=== PATIENT | male | born 1985 | race Caucasian/White ===

== ENCOUNTER 2021-09-22 14:31 | Emergency (ER) | payer OTHER, SELFPAY ==
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
[2021-09-22 14:49] VITALS: BP 114/74; PULSE 81; RESP 18; TEMP 36.3; O2SAT 97; BMI 27.4
== END 2021-09-22 21:57 | disposition left against medical advice (07) ==
PROVIDERS: Emergency Provider Emergency Medicine; PCP Internal Medicine
DX: S29.9XXA Unspecified injury of thorax, initial encounter (principal); S99.921A Unspecified injury of right foot, initial encounter; M25.511 Pain in right shoulder; M79.671 Pain in right foot; V43.52XA Car driver injured in collision with other type car in traffic accident, initial encounter; Y93.9 Activity, unspecified; Y92.410 Unspecified street and highway as the place of occurrence of the external cause; Y99.9 Unspecified external cause status; Z79.899 Other long term (current) drug therapy
CPT/HCPCS: 71045; 73030; 73630; 99283

== ENCOUNTER → 2022-06-25 12:00 | Outpatient (BNVA) | payer OTHER, SELFPAY | PROVIDERS: PCP Internal Medicine; Visit Provider Internal Medicine | DX: S01.01XA Laceration without foreign body of scalp, initial encounter (principal); W22.09XA Striking against other stationary object, initial encounter | CPT/HCPCS: 12002; 70450; 90715; 99203 ==

== ENCOUNTER → 2022-06-26 09:58 | Outpatient (BNVA) | payer OTHER, SELFPAY | PROVIDERS: PCP Internal Medicine; Visit Provider Internal Medicine | DX: S01.01XA Laceration without foreign body of scalp, initial encounter (principal); S06.9X0A Unspecified intracranial injury without loss of consciousness, initial encounter; W22.09XA Striking against other stationary object, initial encounter | CPT/HCPCS: 99213 ==

== ENCOUNTER → 2022-07-03 08:14 | Outpatient (BNVA) | payer OTHER, SELFPAY | PROVIDERS: PCP Internal Medicine; Visit Provider Internal Medicine | DX: S01.01XA Laceration without foreign body of scalp, initial encounter (principal); W22.09XA Striking against other stationary object, initial encounter | CPT/HCPCS: 99212; 99213 ==

== ENCOUNTER 2024-09-16 11:34 | Emergency (ER) | payer OTHER, SELFPAY ==
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
[2024-09-16 11:38] VITALS: BP 115/77; PULSE 78; RESP 14; TEMP 36.4; O2SAT 98; BMI 24.3
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
[2024-09-16 11:55] LABS: MANUAL DIFF FLAG NO
--- NOTE | 2024-09-16 11:55 | PC.NURSE ---
ambulatory to bed w/o SOB. LS Clear all kramer. splinting left lower ant ribs w/ deep breath and movement no bruising. no crepitus noted. no c spine tenderness or stepoffs. also LUQ pain in the soft area
[2024-09-16 11:58] LABS: Basophils Percent Auto 0.4 % (0-2); Eosinophils Percent Auto 0.1 % (0-4); Hematocrit 34.6 % (42.0-52.0); Hemoglobin 11.5 g/dl (14.0-18.0); Imm Gran Abs Auto 0.03 X10*3/uL (0.00-0.03); Imm Gran Pct Auto 0.4 % (0.0-0.4); Lymphocytes Absolute Auto 0.7 X10*3/uL (1.2-4.9); Lymphocytes Percent Auto 8.7 % (20-40); Mean Corpuscular HGB Conc 33.2 g/dl (31.0-36.0); Mean Corpuscular Hemoglobin 29.3 pg (27.0-33.0); Mean Platelet Volume 8.6 fL (9.4-12.4); Monocytes Absolute Auto 0.6 X10*3/uL (0.1-1.2); Monocytes Percent Auto 7.2 % (2-11); Neutrophils Absolute Auto 6.9 x10*3/uL (2.0-8.3); Neutrophils Percent Auto 83.2 % (45-73); Platelet Count 306 X10*3/uL (160-400); Red Blood Count 3.93 X10*6/uL (4.60-5.80); Red Cell Distribution Width 14.2 % (11.0-16.0); White Blood Count 8.3 X10*3/uL (4.8-10.8)
[2024-09-16 12:10] LABS: INTERNATIONAL NORM RATIO 0.9 (0.9-1.1); Prothrombin Time 10.9 SEC (10.9-12.4)
[2024-09-16 12:14] VITALS: BP 120/70; PULSE 78; RESP 13; TEMP 37.2; O2SAT 96
[2024-09-16 12:15] LABS: Alanine Aminotransferase 18 U/L (0-40); Albumin Level 3.9 g/dL (3.5-5.0); Alkaline Phosphatase 80 U/L (39-117); Anion Gap 13 (12-20); Aspartate Amino Transferase 40 U/L (5-37); Bilirubin Total 0.2 mg/dL (0.0-1.0); Blood Urea Nitrogen 17 mg/dL (9-16); Calcium 8.8 mg/dL (8.4-10.2); Carbon Dioxide 24 mmol/L (22-29); Chloride 107 mmol/L (96-108); Creatinine Clr Calc Pharmacy 107.2; Estimated Glomerular Filt Rate > 60; Glucose Random 104 mg/dL (60-115); Magnesium 1.9 mg/dL (1.6-2.6); Potassium 4.3 mmol/L (3.3-5.1); Sodium 140 mmol/L (135-145); Total Protein 6.4 g/dL (6.5-8.0)
[2024-09-16 12:34] LABS: Influenza A PCR NEGATIVE (Negative); Influenza B PCR NEGATIVE (Negative); Resp Syncy Virus RNA Qual PCR NEGATIVE (Negative); SARS COV2 PCR INHOUSE NEGATIVE (Negative)
[2024-09-16] MEDS: iohexoL 350 MG/ML 100 ML INFUS..BTL IV (12:59)
[2024-09-16] MEDS: Morphine Sulfate 4 MG/ML CARTRIDGE IVPUSH (13:15)
[2024-09-16] MEDS: 0.9 % Sodium Chloride 1,000 ML 999 ML IV (13:16)
[2024-09-16 14:00] VITALS: BP 118/72; PULSE 87; RESP 14; TEMP 36.9; O2SAT 96
[2024-09-16 15:02] VITALS: BP 118/72; PULSE 87; RESP 14; TEMP 36.9; O2SAT 96
== END 2024-09-16 15:02 | disposition home or self-care (01) ==
PROVIDERS: Physician Assistant Medical; Emergency Provider Emergency Medicine
DX: S22.32XA Fracture of one rib, left side, initial encounter for closed fracture (principal); R07.89 Other chest pain; R10.2 Pelvic and perineal pain; V19.9XXA Pedal cyclist (driver) (passenger) injured in unspecified traffic accident, initial encounter; Y93.9 Activity, unspecified; Y92.410 Unspecified street and highway as the place of occurrence of the external cause; Y99.8 Other external cause status; Z03.818 Encounter for observation for suspected exposure to other biological agents ruled out
CPT/HCPCS: 0241U; 71250; 74177; 80053; 83735; 85025; 85610; 93005; 96374; 99284; J2270; Q9967

== ENCOUNTER → 2024-09-16 11:39 | Outpatient (BNV) | payer OTHER, SELFPAY | PROVIDERS: Emergency Provider Emergency Medicine; Visit Provider Internal Medicine | DX: S29.9XXA Unspecified injury of thorax, initial encounter (principal) | CPT/HCPCS: 93010 ==

== ENCOUNTER → 2024-09-16 12:06 | Outpatient (BNV) | payer OTHER, SELFPAY | PROVIDERS: Emergency Provider Emergency Medicine; Visit Provider Radiology Diagnostic Radiology | DX: S39.91XA Unspecified injury of abdomen, initial encounter (principal); S22.42XA Multiple fractures of ribs, left side, initial encounter for closed fracture | CPT/HCPCS: 71250; 74177 ==

== ENCOUNTER 2024-09-17 19:06 | Emergency (ER) | payer OTHER, SELFPAY ==
--- NOTE | 2024-09-17 19:11 | ED.GENADULT ---
HPI - General Adult General Chief complaint: Dental/Oral Stated complaint: infection in mouth swelling Time Seen by Provider: 09/17/24 21:32 Related Data Previous Rx's ?Medication ?Instructions ?Recorded clindamycin HCl 300 mg capsule 300 mg PO Q6H 7 days #28 caps 09/16/24 lidocaine 4 % topical patch 1 patch topical BID PRN pain #15 ea 09/16/24 methocarbamol 750 mg tablet 750 mg PO TID PRN muscle spasm #20 09/16/24 tabs Allergies Allergy/AdvReac Type Severity Reaction Status Date / Time red dye [Red Dye] Allergy Unknown VOMITING Verified 09/17/24 19:13 [facility] Social History Social History Advance Directives: No Advance Directives Information Provided: Yes Do you have a plan to hurt others: No Plan Physical Exam ED Vital Signs: BMI result Body Mass Index 25.7 Course Course Course Narrative: RME performed by Lauren Lai PA-C. Patient is a 39 year old assigned male at presenting to the emergency department with worsening facial swelling with a dental infection. Patient's limited physical exam performed in triage showed an individual in no acute distress. Detailed physical exam and review of systems are deferred to the primary care sales representative. Labs ordered. Patient placed back in the waiting room pending room availability and results. Patient left the department without completing treatment. Patient left the department before myself or any of the other emergency department clinicians could explain to or review with the patient; physical exam findings, test results, need or lack there of for additional testing, need or lack there of for a procedure to be performed, need or lack there of for hospital admission / transfer, need or lack there of for prescription medication, treatment options, or a treatment plan. Medical Decision Making Lab Data 09/17/24 19:41 09/17/24 19:41 Labs: Lab Results 09/17/24 Range/Units 19:41 WBC 8.0 (4.8-10.8) X10*3/uL RBC 3.68 L (4.60-5.80) X10*6/uL Hgb 10.7 L (14.0-18.0) g/dl Hct 32.5 L (42.0-52.0) % MCV 88.3 (80.0-98.0) fL MCH 29.1 (27.0-33.0) pg MCHC 32.9 (31.0-36.0) g/dl RDW 14.7 (11.0-16.0) % Plt Count 279 (160-400) X10*3/uL MPV 8.8 L (9.4-12.4) fL Immature Gran % (Auto) 0.3 (0.0-0.4) % Neut % (Auto) 57.9 (45-73) % Lymph % (Auto) 27.0 (20-40) % [place] % (Auto) 12.8 H (2-11) % Eos % (Auto) 1.5 (0-4) % Baso % (Auto) 0.5 (0-2) % Lymph # (Auto) 2.2 (1.2-4.9) X10*3/uL [place] # (Auto) 1.0 (0.1-1.2) X10*3/uL Eos # (Auto) 0.1 (0.0-0.4) X10*3/uL Baso # (Auto) 0.0 (0.0-0.2) X10*3/uL Abs Immat Gran (auto) 0.02 (0.00-0.03) X10*3/uL Absolute Neuts (auto) 4.6 (2.0-8.3) x10*3/uL Absolute Nucleated RBC 0.000 (0.0-0.012) X10*3/uL Nucleated RBC % (auto) 0.0 (0.0-0.2) /100WBC ESR 12 (0-15) MM/HR Sodium 141 (135-145) mmol/L Potassium 4.4 (3.3-5.1) mmol/L Chloride 108 (96-108) mmol/L Carbon Dioxide 25 (22-29) mmol/L Anion Gap 12 (12-20) BUN 17 H (9-16) mg/dL Creatinine 0.75 (0.5-1.4) mg/dL Estim Creat Clear Calc 117.3 Estimated GFR > 60 Random Glucose 86 (60-115) mg/dL Calcium 8.6 (8.4-10.2) mg/dL Magnesium 2.0 (1.6-2.6) mg/dL Total Bilirubin 0.3 (0.0-1.0) mg/dL AST 57 H (5-37) U/L ALT 39 (0-40) U/L Alkaline Phosphatase 74 (39-117) U/L C-Reactive Protein 1.33 H (< or = 0.50) mg/dL Total Protein 5.9 L (6.5-8.0) g/dL Albumin 3.6 (3.5-5.0) g/dL Discharge Plan Discharge Clinical Impression: Pain, dental Patient Disposition: Left W/O Completing Treatment Prescriptions: No Action lidocaine 4 % adhesive patch,medicated 1 patch topical BID PRN (Reason: pain) Qty: 15 0RF clindamycin HCl 300 mg capsule 300 mg PO Q6H 7 Days Qty: 28 0RF methocarbamol 750 mg tablet 750 mg PO TID PRN (Reason: muscle spasm) Qty: 20 0RF Discharge Date/Time: 09/17/24 22:56
[2024-09-17 19:12] VITALS: BP 135/70; PULSE 76; RESP 18; TEMP 36.7; O2SAT 99; BMI 25.7
[2024-09-17 19:48] LABS: MANUAL DIFF FLAG NO
[2024-09-17 19:49] LABS: Basophils Percent Auto 0.5 % (0-2); Eosinophils Absolute Auto 0.1 X10*3/uL (0.0-0.4); Eosinophils Percent Auto 1.5 % (0-4); Hematocrit 32.5 % (42.0-52.0); Hemoglobin 10.7 g/dl (14.0-18.0); Imm Gran Abs Auto 0.02 X10*3/uL (0.00-0.03); Imm Gran Pct Auto 0.3 % (0.0-0.4); Lymphocytes Absolute Auto 2.2 X10*3/uL (1.2-4.9); Mean Corpuscular HGB Conc 32.9 g/dl (31.0-36.0); Mean Corpuscular Hemoglobin 29.1 pg (27.0-33.0); Mean Corpuscular Volume 88.3 fL (80.0-98.0); Mean Platelet Volume 8.8 fL (9.4-12.4); Monocytes Percent Auto 12.8 % (2-11); Neutrophils Absolute Auto 4.6 x10*3/uL (2.0-8.3); Neutrophils Percent Auto 57.9 % (45-73); Platelet Count 279 X10*3/uL (160-400); Red Blood Count 3.68 X10*6/uL (4.60-5.80); Red Cell Distribution Width 14.7 % (11.0-16.0)
[2024-09-17 20:02] LABS: Alanine Aminotransferase 39 U/L (0-40); Albumin Level 3.6 g/dL (3.5-5.0); Alkaline Phosphatase 74 U/L (39-117); Anion Gap 12 (12-20); Aspartate Amino Transferase 57 U/L (5-37); Bilirubin Total 0.3 mg/dL (0.0-1.0); Blood Urea Nitrogen 17 mg/dL (9-16); C Reactive Protein 1.33 mg/dL (< or = 0.50); Calcium 8.6 mg/dL (8.4-10.2); Carbon Dioxide 25 mmol/L (22-29); Chloride 108 mmol/L (96-108); Creatinine Clr Calc Pharmacy 117.3; Estimated Glomerular Filt Rate > 60; Glucose Random 86 mg/dL (60-115); Potassium 4.4 mmol/L (3.3-5.1); Sodium 141 mmol/L (135-145); Total Protein 5.9 g/dL (6.5-8.0)
[2024-09-17 20:29] LABS: Erythrocyte Sedimentation Rate 12 MM/HR (0-15)
[2024-09-17 22:18] VITALS: BP 132/74; PULSE 78; RESP 19; TEMP 36.8; O2SAT 99
== END 2024-09-17 22:56 | disposition left against medical advice (07) ==
PROVIDERS: Physician Assistant Medical; Emergency Provider Emergency Medicine
DX: K08.89 Other specified disorders of teeth and supporting structures (principal); Z79.899 Other long term (current) drug therapy
CPT/HCPCS: 36415; 80053; 83735; 85025; 85652; 86140; 99282; 99283

== ENCOUNTER 2024-11-01 10:08 | Emergency (ER) | payer OTHER, SELFPAY ==
[2024-11-01 10:15] VITALS: BP 109/78; PULSE 82; RESP 16; TEMP 36.6; O2SAT 98; BMI 24.9
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
--- NOTE | 2024-11-01 12:27 | HE.PHANOTE ---
METHADONE CONFIRMATION FORM RECEIVED [facility] WITH 5 TAKE HOME
[2024-11-01] MEDS: methADONE HCl 20 MG/2 ML ORAL.CONC 175 MG PO (12:28)
--- OUTSIDE RECORDS SUMMARY | 2024-11-01 12:29 | XMS_ITS | Clinical Summary ---
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 Role Phone Sheryl Barajas MD Primary Care Provider Family History Relation Name Status Comments Brother Alive HEALTHY Father Alive HTN Maternal Grandfather Alive Maternal Grandmother Alive Mother Alive ETOH, TKR Paternal Grandfather Alive HTN, [place] X 2 Paternal Grandmother Alive Sister Alive GI SXS Social History Tobacco Use Types Packs/Day Years Used Date Smoking Tobacco: Every Day Alcohol Use Standard Drinks/Week Comments No 0 (1 standard drink = 0.6 oz pur e alcohol) Sex and Gender Information Value Date Recorded Sex Assigned at Not on file Legal Sex Male 7:27 PM EST Gender Identity Not on file Sexual Orientation Not on file Obstetrics History Plan of Treatment Health Maintenance Due Date Last Done Comments Hepatitis A Vaccines (1 of 2 - Risk 2-dose series) 2006 Hepatitis B Vaccines (1 of 3 - 19+ 3-dose series) 2006 Pneumococcal Vaccine: Pediat rics (0 to 5 Years) and At-Risk Patients (6 to 64 Years) (1 of 2 - PCV) 2006 DTaP,Tdap,and Td Vaccines (2 - Td or Tdap) 02/07/2014 02/08/2004 Cholesterol Screening (Lipid Panel) 04/11/2022 Depression Screening 04/11/2022 HIV Screening 04/11/2022 Hepatitis C Screening 04/11/2022 Social Influencers of Health Screening 04/11/2022 COVID-19 Vaccine ( - 2023-2 5 season) 2024 Influenza Vaccine (Season Ended) 2025 HIB Vaccines Aged Out No longer eligi ble based on patient's age to complete this topic HPV Vaccines Aged Out No longer eligi ble based on patient's age to complete this topic IPV Vaccines Aged Out No longer eligi ble based on patient's age to complete this topic MMR Vaccines Aged Out No longer eligi ble based on patient's age to complete this topic Meningococcal ACWY Vaccine Aged Out N o longer eligible based on patient's age to complete this topic Meningococcal B Vaccine Aged Out No l onger eligible based on patient's age to complete this topic RSV Immunization Patients [place] 20 months Aged Out No longer eligible b ased on patient's age to complete this topic Varicella Vaccines Aged Out No longer eligible based on patient's age to complete this topic 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
[2024-11-01 12:44] VITALS: BP 109/78; PULSE 82; RESP 16; TEMP 36.6; O2SAT 98
== END 2024-11-01 12:45 | disposition home or self-care (01) ==
PROVIDERS: Emergency Provider Emergency Medicine; PCP Internal Medicine
DX: F11.20 Opioid dependence, uncomplicated (principal); R11.0 Nausea; Z76.0 Encounter for issue of repeat prescription
CPT/HCPCS: 99283; 99284